=== PATIENT | female | born 1950 | race Caucasian/White ===

== ENCOUNTER 2018-10-23 10:29 | Emergency (ER) | payer MEDICARE, BC ==
[~2018-10-23] VITALS: Ht 167.6 cm; Wt 90.9 kg
[~2018-10-23 10:29] MED LIST: HORMONE
[2018-10-23 10:46] VITALS: BP 163/93; PULSE 95; TEMP 98.3
[2018-10-23] MEDS ORDERED: MOBIC15 MG PO (11:24)
[2018-10-23] MEDS ORDERED: FLONASEALLERGY NS (11:25)
[2018-10-23] MEDS ORDERED: GLUCOSAMINE 1000 (11:25)
[2018-10-23] MEDS ORDERED: OSTEO-BI-FLEX 21 TAB PO (11:25)
[2018-10-23] MEDS ORDERED: GLU PO (11:26)
[2018-10-23] MEDS ORDERED: CHONDROITIN PO (11:26)
[2018-10-23] MEDS ORDERED: CALCIUM 600/VIT1 CAP PO (11:26)
[2018-10-23] MEDS ORDERED: ONE DAILY1 TA1 PO (11:27)
[2018-10-23] MEDS ORDERED: COLACE 100100 MG/CAP PO (11:27)
[2018-10-23] MEDS ORDERED: MILK OF MA400 MG/52 (11:27)
[2018-10-23] MEDS ORDERED: BENADRYL25 M2 PO (11:28)
[2018-10-23] MEDS ORDERED: KRILL OIL 1,001 EAC1 PO (11:28)
== END 2018-10-23 12:48 | disposition home or self-care (01) ==
LOC: COL.ER 10:29
DX: S76.211A Strain of adductor muscle, fascia and tendon of right thigh, initial encounter (principal); X50.1XXA Overexertion from prolonged static or awkward postures, initial encounter

== ENCOUNTER 2019-08-02 16:00 | Outpatient (RCR) | payer MEDICARE, BC ==
[~2019-08-02 16:00] MED LIST changes: +BENADRYL25 M2 PO; +CALCIUM 600/VIT1 CAP PO; +CHONDROITIN PO; +COLACE 100100 MG/CAP PO; +FLONASEALLERGY NS; +GLU PO; +GLUCOSAMINE 1000; +KRILL OIL 1,001 EAC1 PO; +MILK OF MA400 MG/52; +MOBIC15 MG PO; +ONE DAILY1 TA1 PO; +OSTEO-BI-FLEX 21 TAB PO
== END 2019-08-21 16:33 | disposition home or self-care (01) ==
LOC: WSPT 16:00
DX: M17.0 Bilateral primary osteoarthritis of knee (principal)

== ENCOUNTER → 2019-08-03 | Outpatient (CLI) | payer MEDICARE, BC | LOC: MC.RAD 07:10 | DX: Z12.31 Encounter for screening mammogram for malignant neoplasm of breast (principal) ==

== ENCOUNTER 2019-08-21 08:15 | Outpatient (RCR) | payer MEDICARE, BC | END 2019-08-21 15:58 | disposition home or self-care (01) | LOC: WSOT 08:15 | DX: M79.641 Pain in right hand (principal); M79.642 Pain in left hand ==

== ENCOUNTER 2019-11-15 09:45 | Outpatient (RCR) | payer MEDICARE, BC | END 2019-11-29 14:44 | disposition home or self-care (01) | LOC: WSPT 09:45 | DX: Z96.651 Presence of right artificial knee joint (principal) ==

== ENCOUNTER → 2020-10-29 | Outpatient (CLI) | payer MEDICARE, BC | LOC: MC.RAD 07:30 | DX: Z12.31 Encounter for screening mammogram for malignant neoplasm of breast (principal) ==

== ENCOUNTER → 2021-01-27 | Outpatient (CLI) | payer MEDICARE, BC | LOC: COL.CARD 07:40 | DX: Z01.818 Encounter for other preprocedural examination (principal) ==

== ENCOUNTER 2022-02-13 20:39 | Emergency (ER) | payer MEDICARE, BC ==
[~2022-02-13] VITALS: Ht 165.1 cm; Wt 85.5 kg
[2022-02-13 20:56] VITALS: TEMP 97.7
[2022-02-13 22:18] LABS: BASO % 0.4 % (0.0-2.0); EOS # 0.1 K/mm3 (0.0-0.7); EOS % 0.8 % (0.0-4.0); GRAN # 6.2 K/mm3 (1.4-6.5); GRAN % 78.1 % (42.2-75.2); HEMATOCRIT 39.3 % (37.0-47.0); HEMOGLOBIN 13.3 g/dl (12.5-16.0); LYMPH # 1.1 K/mm3 (1.2-3.4); LYMPH % 13.7 % (20.0-51.0); MEAN CELL VOLUME 95 fl (80.0-100.0); MEAN CORPUSCULAR HEMOGLOBIN 32 pg (27-31); MEAN CORPUSCULAR HGB CONC 34 g/dl (33.0-37.0); MEAN PLATELET VOLUME 9.1 fl (7.4-10.4); MONO # 0.5 K/mm3 (0.1-0.6); MONO % 6.7 % (1.7-9.3); PLATELET COUNT 263 K/mm3 (130-400); RED BLOOD COUNT 4.14 M/mm3 (4.10-5.30); REDCELL DISTRIBUTION WIDTH-CV 12.8 % (11.5-14.5)
[2022-02-13 22:56] LABS: ALANINE AMINOTRANSFERASE 10 U/L (0-55); ALBUMIN 3.7 gm/dL (3.4-4.8); ALKALINE PHOSPHATASE 79 U/L (40-150); ANION GAP 9 mmol/L (7-16); AST,SGOT 15 U/L (5-34); BILIRUBIN,TOTAL 0.2 mg/dL (0.2-1.2); BLOOD UREA NITROGEN 18 mg/dL (10-20); CARBON DIOXIDE 26 mmol/L (23-31); CHLORIDE 102 mmol/L (98-107); CREATININE, serum 0.76 mg/dL (0.57-1.11); GLUCOSE 134 mg/dL (70-99); POTASSIUM 3.8 mmol/L (3.5-4.5); SODIUM 137 mmol/L (136-145); TOTAL PROTEIN 6.9 gm/dL (6.2-8.1)
[2022-02-13 23:02] LABS: TROPONIN-I < 0.010 ng/mL (0.00-0.033)
[2022-02-13 23:24] VITALS: BP 145/85; PULSE 66
== END 2022-02-13 23:24 | disposition home or self-care (01) ==
LOC: COL.ER 20:39
PROVIDERS: Emergency Medicine
DX: R55 Syncope and collapse (principal); Z20.822 Contact with and (suspected) exposure to COVID-19

== ENCOUNTER 2022-12-09 09:00 | Outpatient (RCR) | payer MEDICARE, BC | END 2022-12-13 | disposition home or self-care (01) | LOC: WSPT | DX: M54.40 Lumbago with sciatica, unspecified side (principal) | CPT/HCPCS: G0283-GP ==